=== PATIENT | male | born 1980 | race Asian ===

== ENCOUNTER 2020-09-06 06:35 | Day surgery (SDC) | payer OTHER, SELFPAY ==
[~2020-09-06] VITALS: Ht 177.8 cm; Wt 83.9 kg
[2020-09-06] MEDS ORDERED: MEPERIDINE HCL/PF 100 MG/ML AMP ONE (07:17)
[2020-09-06] MEDS ORDERED: SIMETHICONE 40 MG/0.6 ML ML ONE (07:17)
[2020-09-06] MEDS ORDERED: MIDAZOLAM HCL 5 MG/5 ML VIAL ONE (07:17)
[2020-09-06 12:57] VITALS: BP_SYST 115
== END 2020-09-06 09:30 | disposition home or self-care (01) ==
LOC: SMU 06:35 → SDS 06:35
PROVIDERS: ATTEND Internal Medicine Gastroenterology
DX: K62.5 Hemorrhage of anus and rectum (principal); K64.8 Other hemorrhoids; D12.2 Benign neoplasm of ascending colon; K64.4 Residual hemorrhoidal skin tags; K62.89 Other specified diseases of anus and rectum; I10 Essential (primary) hypertension; Z87.891 Personal history of nicotine dependence; Z79.899 Other long term (current) drug therapy; Z20.828 Contact with and (suspected) exposure to other viral communicable diseases
CPT/HCPCS: 45385; 45398; 88305; 99152; G0378; J2175; J2250; J7030; U0003; 45380